=== PATIENT | male | born 1990 | race Caucasian/White ===

== ENCOUNTER 2021-11-09 18:16 | Emergency (ER) | payer OTHER, SELFPAY ==
[2021-11-09 18:25] VITALS: BP 126/78; PULSE 114; RESP 20; TEMP 36.6; O2SAT 98
--- NOTE | 2021-11-09 18:42 | ED_ITS ---
HPI - URI/Sore Throat General Chief Complaint: Upper Respiratory Infection Stated Complaint: Sore Throat Time Seen by Provider: 11/09/21 18:42 Source: patient Mode of arrival: ambulatory Limitations: no limitations History of Present Illness HPI Narrative: 31-year-old gentleman presents with a sore throat tender submandibular glands with no shortness of breath no fever chills no chest pain no nausea vomiting there is some sinus congestion and drainage. MD elicited complaint: sore throat Onset (ago): day(s) Consistency: constant Related Data Allergies Allergy/AdvReac Type Severity Reaction Status Date / Time No Known Allergies Allergy Verified 11/09/21 18:34 Review of Systems Review of Systems: All systems reviewed & are unremarkable except as noted in HPI and below PMFSH Past Medical History Medical History Patient denies medical problems Exam Const: General: no acute distress and alert Orientation/consciousness: patient oriented x3 Limitations: altered mental status HENMT: Head: normal to inspection Other: pharyngeal erythema Eyes: Conjunctivae: conjunctivae normal Pupils: Equal, round and reactive pupils present Neck: Neck: normal visual inspection and lymphadenopathy Other: tender submandibular gland Chest: Chest palpation & inspection: normal inspection of the chest Resp: Effort & Inspection: normal respiratory effort Cardio: Rate: regular rate Rhythm: regular rhythm GI: GI Palp: Yes Soft to palpation : Testes: Testes normal Urinary Catheter: Urinary Catheter: patent and draining Skin: General skin exam: normal color Rashes: no rashes Neuro: General: patient oriented x3 and moves all extremities Extrem: General: normal to inspection and no pedal edema Psych: Mental Status: mental status grossly normal Affect: normal affect Course Course Emergency Course: strep performed and reviewed with patient. MDM - URI/Sore Throat Lab Data Labs: Lab Results 11/09/21 Range/Units 18:35 Grp A Beta Strep Ag Pending Critical Care Time Critical Care Time Critical Care Time: No Discharge Plan Discharge Clinical Impression: Pharyngitis Qualifiers: Pharyngitis/tonsillitis etiology: other specified organisms Qualified Code(s): J02.8 - Acute pharyngitis due to other specified organisms Sinusitis Qualifiers: Sinusitis location: maxillary Chronicity: acute Recurrence: non-recurrent Qualified Code(s): J01.00 - Acute maxillary sinusitis, unspecified Patient Disposition: Home, Self-Care Condition: Stable Instructions: Antibiotic Form, Sinusitis (ED) Additional Instructions: take medicine as prescribed and follow-up primary care physician symptoms per sist or worsen. Prescriptions: New azithromycin [Zithromax Z-Phil] 250 mg tablet See Rx Instructions .ROUTE .COMPLEX Qty: 6 RF: 0 Follow-up/Referrals: UNKNOWN,DOCTOR [Primary Care Provider] - Time of Disposition: 18:57
--- NOTE | 2021-11-09 18:56 | PC.NURSE ---
report to SAKSHI Sainz
[2021-11-09] MEDS: AZITHROMYCIN 250 MG TABLET 500 MG PO (19:00)
[2021-11-09 19:15] VITALS: BP 102/68; PULSE 95; RESP 16; TEMP 36.4; O2SAT 94
== END 2021-11-09 19:18 | disposition home or self-care (01) ==
PROVIDERS: Emergency Provider Emergency Medicine
DX: J02.8 Acute pharyngitis due to other specified organisms (principal); J01.00 Acute maxillary sinusitis, unspecified
CPT/HCPCS: 87081; 87880; 99283; A9270

== ENCOUNTER 2021-11-12 22:42 | Emergency (ER) | payer OTHER, SELFPAY ==
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
[2021-11-12 22:53] VITALS: BP 146/89; PULSE 90; RESP 16; TEMP 36.6; O2SAT 96
[2021-11-12] MEDS: KETOROLAC (*BKC) 60 MG/2 ML VIAL IM (23:12)
[2021-11-12 23:38] LABS: Basophils Absolute Auto 0.03 K/mm3 (0.00-0.10); Basophils Percent Auto 0.4 % (0.0-1.0); Eosinophils Absolute Auto 0.07 K/mm3 (0.02-0.50); Eosinophils Percent Auto 0.9 % (1.0-6.0); Hematocrit 39.6 % (40.0-54.0); Hemoglobin 13.1 g/dL (14.0-18.0); Immature Granulocyte Percent A 1.2 % (0.0-0.0); Lymphocytes Absolute Auto 2.81 K/mm3 (1.10-4.50); Lymphocytes Percent Auto 34.8 % (18.0-42.0); Mean Corpuscular HGB Conc 33.1 g/dL (32.0-36.0); Mean Corpuscular Hemoglobin 29.7 pg (27.0-31.0); Mean Corpuscular Volume 89.8 fL (78.0-102.0); Mean Platelet Volume 11.6 fl (8.7-11.0); Monocytes Absolute Auto 0.67 K/mm3 (0.10-0.90); Monocytes Percent Auto 8.3 % (2.0-11.0); Neutrophils Absolute Auto 4.4 K/mm3 (1.7-7.2); Neutrophils Percent Auto 54.4 % (50.0-70.0); Platelet Count Result 141 K/mm3 (150-420); Red Blood Count 4.41 M/mm3 (4.70-6.10); Red Cell Distribution Width 13.2 % (11.6-14.4); White Blood Count 8.1 K/mm3 (4.8-10.8)
[2021-11-12] MEDS: SODIUM CHLORIDE 0.9% IV 1,000 ML 999 ML IV CONT (23:38)
[2021-11-12 23:49] LABS: Add Urine Microscopic? NO; Appearance Urine Clear (Clear); Bilirubin Urine Negative (Negative); Blood Urine Negative (Negative); Color Urine Yellow (Yellow); Glucose Urine UA Negative (Negative); Ketones Urine Negative (Negative); Leukocyte Esterase Ur Negative (Negative); Nitrate Urine Negative (Negative); Protein Urine Negative (Negative); Specific Grav Ur >= 1.030 (1.010-1.020); Urobilinogen Urine 0.2 mg/dL (0.2-1.0)
[2021-11-12 23:56] LABS: Alanine Aminotransferase 23 U/L (16-63); Albumin Level 3.1 g/dL (3.4-5.0); Alkaline Phosphatase 81 U/L (46-116); Anion Gap 11 mmol/L (8-16); Aspartate Amino Transferase 13 U/L (15-37); Bilirubin,Total 0.4 mg/dL (0.00-1.00); Blood Urea Nitrogen 7 mg/dL (7-18); Calcium 8.3 mg/dL (8.5-10.1); Carbon Dioxide 24 mmol/L (21-32); Chloride 104 mmol/L (98-108); Estimated CRCL calculation 134 ml/min; Estimated Glomerular Filt Rate > 60; Glucose 95 mg/dL (70-99); Osmolality Calculated 286 mOsm/kg (285-295); Potassium 3.2 mmol/L (3.5-5.1); Sodium 139 mmol/L (136-145); Total Protein 6.7 g/dL (6.4-8.2)
[2021-11-12 23:58] LABS: Lipase 57 U/L (73-393)
[2021-11-13 00:19] VITALS: BP 102/67; PULSE 63; RESP 16; O2SAT 98
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
[2021-11-13] MEDS: POTASSIUM CHLORIDE 20 MEQ TABLET 40 MEQ PO (00:41)
== END 2021-11-13 01:02 | disposition home or self-care (01) ==
PROVIDERS: Emergency Provider Emergency Medicine
DX: S13.4XXA Sprain of ligaments of cervical spine, initial encounter (principal); V89.2XXA Person injured in unspecified motor-vehicle accident, traffic, initial encounter
CPT/HCPCS: 36415; 70450; 71250; 72125; 74176; 80053; 81003; 83605; 83690; 85025; 96360; 96372; 99284; A9270; J1885; J7030; L0150

== ENCOUNTER 2022-03-03 01:46 | Emergency (ER) | payer OTHER, SELFPAY ==
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
[2022-03-03 01:46] VITALS: BP 122/79; PULSE 112; RESP 20; TEMP 36.4; O2SAT 97
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
[2022-03-03 02:45] LABS: Alanine Aminotransferase 29 U/L (16-63); Albumin Level 3.9 g/dL (3.4-5.0); Alkaline Phosphatase 88 U/L (46-116); Anion Gap 10 mmol/L (8-16); Aspartate Amino Transferase 17 U/L (15-37); Bilirubin,Total 1.4 mg/dL (0.00-1.00); Blood Urea Nitrogen 8 mg/dL (7-18); CRP 1.5 mg/dL (0.0-0.9); Calcium 8.8 mg/dL (8.5-10.1); Carbon Dioxide 24 mmol/L (21-32); Chloride 104 mmol/L (98-108); Estimated CRCL calculation 108 ml/min; Estimated Glomerular Filt Rate > 60; Glucose 108 mg/dL (70-99); Lactic Acid Reflex 2.4 mmol/L (0.4-2.0); Lipase 42 U/L (73-393); Osmolality Calculated 285 mOsm/kg (285-295); Potassium 3.3 mmol/L (3.5-5.1); Sodium 138 mmol/L (136-145); Total Protein 7.8 g/dL (6.4-8.2); Troponin I 4.5 ng/L (0.00-60.4)
[2022-03-03 02:49] LABS: Basophils Absolute Auto 0.04 K/mm3 (0.00-0.10); Basophils Percent Auto 0.4 % (0.0-1.0); Eosinophils Absolute Auto 0.04 K/mm3 (0.02-0.50); Eosinophils Percent Auto 0.4 % (1.0-6.0); Hematocrit 42.8 % (40.0-54.0); Hemoglobin 14.5 g/dL (14.0-18.0); Immature Granulocyte Absolute 0.13 K/mm3 (0.00-0.00); Immature Granulocyte Percent A 1.3 % (0.0-0.0); Lymphocytes Absolute Auto 2.63 K/mm3 (1.10-4.50); Lymphocytes Percent Auto 26.9 % (18.0-42.0); Mean Corpuscular HGB Conc 33.9 g/dL (32.0-36.0); Mean Corpuscular Hemoglobin 29.5 pg (27.0-31.0); Mean Corpuscular Volume 87.2 fL (78.0-102.0); Mean Platelet Volume 12.3 fl (8.7-11.0); Monocytes Absolute Auto 0.59 K/mm3 (0.10-0.90); Neutrophils Absolute Auto 6.3 K/mm3 (1.7-7.2); Platelet Count Result 165 K/mm3 (150-420); Red Blood Count 4.91 M/mm3 (4.70-6.10); Red Cell Distribution Width 12.5 % (11.6-14.4); White Blood Count 9.8 K/mm3 (4.8-10.8)
[2022-03-03 02:52] LABS: Add Urine Microscopic? YES; Appearance Urine Clear (Clear); Bilirubin Urine Negative (Negative); Blood Urine Negative (Negative); Color Urine Light Yellow (Yellow); Glucose Urine UA Negative (Negative); Ketones Urine Negative (Negative); Leukocyte Esterase Ur Trace (Negative); Nitrate Urine Negative (Negative); Protein Urine Negative (Negative); Specific Grav Ur <= 1.005 (1.010-1.020); pH Urine 6.5 (5.0-8.0)
[2022-03-03 03:04] LABS: Mucus Urine Few /lpf; RBC Urine 0-2 /hpf (0-2); Squamous Epithelial Cell Urine Few /hpf (Few); WBC Urine None seen /hpf (0-3)
[2022-03-03] MEDS: POTASSIUM CHLORIDE 20 MEQ TABLET PO (03:25)
[2022-03-03] MEDS: SODIUM CHLORIDE 0.9% IV 1,000 ML 999 ML IV CONT (03:27)
[2022-03-03] MEDS: KCL 20 MEQ/SW 100 ML 100 ML 50 MEQ IVPB (03:30)
--- NOTE | 2022-03-03 03:30 | PC.NURSE ---
Pt states his abdomen pain has subsided. Pt states he is still having the right sided rib pain, but not as intense when he first arrived.
[2022-03-03 03:31] VITALS: BP 125/79; PULSE 68; RESP 16; O2SAT 100
[2022-03-03 04:53] VITALS: BP 122/77; PULSE 80; RESP 16; O2SAT 99
[2022-03-03 05:00] VITALS: TEMP 36.7
[2022-03-03 05:23] LABS: Reflex Lactic Acid Yes or No Add Lactic
== END 2022-03-03 05:07 | disposition home or self-care (01) ==
PROVIDERS: Emergency Provider Family Medicine
DX: R10.9 Unspecified abdominal pain (principal); M79.3 Panniculitis, unspecified
CPT/HCPCS: 36415; 74176; 80053; 81001; 83605; 83690; 84484; 85025; 86140; 96365; 99284; A9270; J3480; J7030

== ENCOUNTER 2022-05-21 11:44 | Emergency (ER) | payer OTHER, SELFPAY ==
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
[2022-05-21 11:50] VITALS: BP 125/83; PULSE 82; RESP 20; TEMP 36.8; O2SAT 98
--- NOTE | 2022-05-21 11:59 | ECG_ITS ---
Measurements Intervals [place] Rate: 71 P: 83 IN: 154 QRS: 124 QRSD: 98 T: 100 QT: 377 QTc: 411 Interpretive Statements SINUS RHYTHM CONSIDER LIMB LEAD REVERSAL ATYPICAL ECG NO PREVIOUS ECG AVAILABLE FOR COMPARISON Electronically Signed On 05-21-2022 12:08:58 CDT by Jesús Quiñonez D.O.
[2022-05-21] MEDS: SODIUM CHLORIDE 0.9% IV 500 ML 999 ML IV CONT (12:15)
[2022-05-21 12:33] LABS: Basophils Absolute Auto 0.02 K/mm3 (0.00-0.10); Basophils Percent Auto 0.3 % (0.0-1.0); Eosinophils Absolute Auto 0.06 K/mm3 (0.02-0.50); Eosinophils Percent Auto 0.9 % (1.0-6.0); Hematocrit 41.1 % (40.0-54.0); Hemoglobin 13.8 g/dL (14.0-18.0); Immature Granulocyte Absolute 0.05 K/mm3 (0.00-0.00); Immature Granulocyte Percent A 0.8 % (0.0-0.0); Lymphocytes Absolute Auto 2.32 K/mm3 (1.10-4.50); Lymphocytes Percent Auto 35.5 % (18.0-42.0); Mean Corpuscular HGB Conc 33.6 g/dL (32.0-36.0); Mean Corpuscular Hemoglobin 29.5 pg (27.0-31.0); Mean Corpuscular Volume 87.8 fL (78.0-102.0); Mean Platelet Volume 11.8 fl (8.7-11.0); Monocytes Percent Auto 9.2 % (2.0-11.0); Neutrophils Absolute Auto 3.5 K/mm3 (1.7-7.2); Neutrophils Percent Auto 53.3 % (50.0-70.0); Platelet Count Result 160 K/mm3 (150-420); Red Blood Count 4.68 M/mm3 (4.70-6.10); Red Cell Distribution Width 12.4 % (11.6-14.4); White Blood Count 6.5 K/mm3 (4.8-10.8)
[2022-05-21 12:37] LABS: Base Excess ABG -2.2 mmol/L (0-2); Device ROOM AIR; HCO3 ABG 19.8 mmol/L (23-29); Modified Allen's Test Pass; Oxygen Content ABG 17.8 %vol (16.0-22.0); Oxygen Saturation ABG 97.6 % (95-97); Oxyhemoglobin 91.2 % (94-100); PCO2 ABG 26.9 mmHg (35-45); PO2 ABG 96.8 mmHg (80-90); Site Drawn LEFT RADIAL; Total Hemoglobin 13.8 g/dL (12.0-18.0); pH ABG 7.48 (7.35-7.45)
[2022-05-21 12:58] LABS: Alanine Aminotransferase 26 U/L (16-63); Albumin Level 3.8 g/dL (3.4-5.0); Alkaline Phosphatase 79 U/L (46-116); Anion Gap 7 mmol/L (8-16); Aspartate Amino Transferase 19 U/L (15-37); Bilirubin,Total 0.9 mg/dL (0.00-1.00); Blood Urea Nitrogen 9 mg/dL (7-18); Calcium 8.8 mg/dL (8.5-10.1); Carbon Dioxide 25 mmol/L (21-32); Chloride 103 mmol/L (98-108); Estimated CRCL calculation 125 ml/min; Estimated Glomerular Filt Rate > 60; Ethanol < 3 mg/dL (0-6); Glucose 105 mg/dL (70-99); Osmolality Calculated 278 mOsm/kg (285-295); Potassium 3.7 mmol/L (3.5-5.1); Sodium 135 mmol/L (136-145); Thyroid Stimulating Hormone 1.11 uIU/mL (0.36-3.74); Total Protein 7.5 g/dL (6.4-8.2); Troponin I 4.3 ng/L (0.00-60.4)
[2022-05-21 13:10] LABS: Influenza A QL RT-PCR Negative (Negative); Influenza B QL RT-PCR Negative (Negative); SARS-CoV-2 RNA PCR Negative (Negative)
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
[2022-05-21 13:28] VITALS: BP 113/78; PULSE 71; RESP 20; TEMP 37.1; O2SAT 98
== END 2022-05-21 13:32 | disposition home or self-care (01) ==
PROVIDERS: Emergency Provider Emergency Medicine
DX: R00.2 Palpitations (principal); R42 Dizziness and giddiness; Z20.822 Contact with and (suspected) exposure to COVID-19
CPT/HCPCS: 36415; 36600; 70450; 71045; 80053; 80307; 82805; 84443; 84484; 85025; 87502; 93005; 96360; 99284; C9803; J7040; U0003; U0005